=== PATIENT | male | born 1990 | race Caucasian/White ===

== ENCOUNTER → 2025-01-30 12:49 | Outpatient (CLI) | payer OTHER, SELFPAY ==
--- NOTE | 2025-01-30 12:52 | DI.MRI.S_ITS ---
PROCEDURE: MR KNEE RT WO CON INDICATIONS: pain in right knee TECHNIQUE: Noncontrast sagittal PD fast spin echo and T2 fast spin echo with fat saturation, sagittal 3-D FLASH with fat saturation; coronal T1 spin echo and PD fast spin echo with fat saturation, and axial PD fast spin echo with fat saturation through the knee. COMPARISON: None. FINDINGS: Image quality: Excellent. Menisci: The medial and lateral menisci demonstrate normal morphology and internal signal. The meniscal root ligaments appear intact. Cruciate ligaments: The anterior and posterior cruciate ligaments appear intact. Medial structures: Grade 1 sprain of the MCL. Lateral structures: The lateral collateral ligament, long and short heads of the biceps femoris tendon appear intact. The popliteus tendon appears normal; the popliteofibular ligament appears intact. The posterosuperior and anteroinferior popliteomeniscal fascicles appear intact. The arcuate and fabellofibular ligaments appear intact, on either side of the lateral inferior geniculate artery. Iliotibial band appears normal. Anterior structures: The quadriceps and patellar tendons appear intact. Patellar alignment is normal. Mild Hoffa's fat pad edema, extending to the anterior intercondylar notch. Bones and cartilage: There are multifocal low-grade chondral irregularity and chondral fissuring in the patella. Mild chondral irregularity of the central trochlea. The cartilage of the medial and the lateral compartment is grossly well maintained. No acute fracture. Joint space: Small knee effusion. No popliteal cyst. Moderate amount effusion at the proximal tibiofibular articulation. The popliteal vasculature is unremarkable. No intra-articular body. Mild subcutaneous edema of the anteromedial knee. IMPRESSION: 1. Grade 1 sprain of the MCL. 2. Mild Hoffa's fat pad edema, extending to the anterior intercondylar notch. 3. Mild chondrosis of the patellofemoral compartment. Dictated by: Laine Byers M.D. on 01/30/2025 at 15:37 Approved by: Laine Byers M.D. on 01/30/2025 at 15:47
== END ==
DX: S83.411A Sprain of medial collateral ligament of right knee, initial encounter (principal); M22.41 Chondromalacia patellae, right knee; M25.561 Pain in right knee; M25.461 Effusion, right knee
CPT/HCPCS: 73721